=== PATIENT | male | born 1940 | race African-American/Black ===

== ENCOUNTER 2017-01-21 08:57 | Day surgery (SDC) | payer OTHER ==
[~2017-01-21] VITALS: Ht 175.3 cm; Wt 76.2 kg
--- NOTE | ~2017-01-21 | EGD ---
EGD REPORT [facility] [address] [address] NAME: ELMO PATTERSON : [birth year] STATUS : REG [facility]#: [id number] AGE: 76 ADM/REG DATE : 01/21/17 MR#: [id number] REPORT SERV DATE: 01/21/17 DICTATED BY: JOE WERNER DATE: 01/21/17 REPORT STATUS : Draft [facility] DATE: 01/21/17 Endoscopy Center Patient Name: Elmo Patterson. Date of : 1940 Attending MD: JOE WERNER MD Procedure Date No Time: 01/21/2017 Procedure: Colonoscopy Indications: Screening for colorectal malignant neoplasm Referring MD: SUSAN TORRE MD Medicines: Monitored Anesthesia Care Complications: No immediate complications. Procedure: Pre-Anesthesia Assessment: - ASA Grade Assessment: III - A patient with severe systemic disease. After I obtained informed consent, the scope was passed under direct vision. Throughout the procedure, the patient's blood pressure, pulse, and oxygen saturations were monitored continuously. The CF [id number] was introduced through the anus and advanced to the cecum, identified by appendiceal orifice and ileocecal valve. The colonoscopy was performed without difficulty. The patient tolerated the procedure well. The quality of the bowel preparation was good. Findings: The digital rectal exam was normal. Pertinent negatives include no palpable rectal lesions. The terminal ileum appeared normal. A sessile polyp was found in the ascending colon. The polyp was 4 mm in size. The polyp was removed with a cold biopsy forceps. Resection and retrieval were complete. A sessile polyp was found in the transverse colon. The polyp was 6 mm in size. The polyp was removed with a cold biopsy forceps. Resection and retrieval were complete. A sessile polyp was found in the sigmoid colon. The polyp was 4 mm in size. The polyp was removed with a cold biopsy forceps. Resection and retrieval were complete. Multiple diverticula were found in the sigmoid colon. A few diverticula were found in the descending colon, in the transverse colon and in the ascending colon. Hemorrhoids were found during retroflexion. Impression: - The examined portion of the ileum was normal. - One 4 mm polyp in the ascending colon. Resected and retrieved. EGD REPORT [place] [id number] [facility] [place]. [address] NAME: ELMO PATTERSON : [birth year] STATUS : REG [facility] PAT#: [id number] AGE: 76 ADM/REG DATE : 01/21/17 MR#: [id number] REPORT SERV DATE: 01/21/17 DICTATED BY: JOE WERNER DATE: 01/21/17 REPORT STATUS : Draft TRANSCRIBED BY: [employer] DATE: 01/21/17 - One 6 mm polyp in the transverse colon. Resected and retrieved. - One 4 mm polyp in the sigmoid colon. Resected and retrieved. - Diverticulosis in the sigmoid colon. - Diverticulosis in the descending colon, in the transverse colon and in the ascending colon. - Hemorrhoids. Recommendation: - Patient has a contact number available for emergencies. The signs and symptoms of potential delayed complications were discussed with the patient. Return to normal activities tomorrow. Written discharge instructions were provided to the patient. - Regular diet. - Continue present medications. - Await pathology results. - Repeat colonoscopy for surveillance based on pathology results. - Return to GI clinic PRN. Procedure Code(s): --- Professional --- 62710, Colonoscopy, flexible, proximal to splenic flexure; with biopsy, single or multiple Diagnosis Code(s): --- Professional --- K64.9, Unspecified hemorrhoids K57.30, Diverticulosis of large intestine without perforation or abscess without bleeding D12.5, Benign neoplasm of sigmoid colon D12.3, Benign neoplasm of transverse colon D12.2, Benign neoplasm of ascending colon Z12.11, Encounter for screening for malignant neoplasm of colon CPT copyright 2013 [employer]. All rights reserved. The codes documented in this report are preliminary and upon grab jack worker review may be revised to meet current compliance requirements. JOE WERNER MD 01/21/2017 10:40 AM This report has been signed electronically. Number of Addenda: 0 EGD REPORT [facility] [address] [place]. [address] NAME: ELMO PATTERSON : [birth year] STATUS : REG [facility] PAT#: [id number] AGE: 76 ADM/REG DATE : 01/21/17 MR#: [id number] REPORT SERV DATE: 01/21/17 DICTATED BY: JOE WERNER DATE: 01/21/17 REPORT STATUS : Draft TRANSCRIBED BY: [employer] DATE: 01/21/17 Note Initiated On: 01/21/2017 10:08 AM Scope Withdrawal Time 0 hours 7 minutes 39 seconds [address] [address]
[~2017-01-21 08:57] MED LIST: ASAB PO; BRIMONIDINE0.2 % OPH; FISH-EPA1000 MG PO; GLUCPH PO; LIPITOR20 PO; LUMIGAN2.5 ML OPH; NORV5 PO; ZESTRIL20 MG PO
== END 2017-01-21 23:59 | disposition home or self-care (01) ==
LOC: DMU 08:57
PROVIDERS: Internal Medicine Gastroenterology
PROC: 0DBL8ZX Excision of Transverse Colon, Via Natural or Artificial Opening Endoscopic, Diagnostic (ICD-10-PCS; 2017-01-21)
PROC: 0DBK8ZX Excision of Ascending Colon, Via Natural or Artificial Opening Endoscopic, Diagnostic (ICD-10-PCS; 2017-01-21)
PROC: 0DBN8ZX Excision of Sigmoid Colon, Via Natural or Artificial Opening Endoscopic, Diagnostic (ICD-10-PCS; principal; 2017-01-21 10:30)
DX: Z12.11 Encounter for screening for malignant neoplasm of colon (principal); D12.2 Benign neoplasm of ascending colon; K63.5 Polyp of colon; K57.30 Diverticulosis of large intestine without perforation or abscess without bleeding; K64.9 Unspecified hemorrhoids; E11.9 Type 2 diabetes mellitus without complications; Z98.890 Other specified postprocedural states; Z79.82 Long term (current) use of aspirin; Z79.84 Long term (current) use of oral hypoglycemic drugs; Z79.899 Other long term (current) drug therapy
CPT/HCPCS: 82962; 88305